=== PATIENT | male | born 1990 | race Caucasian/White ===

== ENCOUNTER 2025-01-16 02:05 | Emergency (ER) | payer SELFPAY ==
[2025-01-16] MEDS ORDERED: Ibuprofen 800 MG TAB ONE (02:37)
== END 2025-01-16 02:49 | disposition home or self-care (01) ==
LOC: ERS 02:05
DX: S90.562A Insect bite (nonvenomous), left ankle, initial encounter (principal); S90.561A Insect bite (nonvenomous), right ankle, initial encounter; L08.9 Local infection of the skin and subcutaneous tissue, unspecified; F17.210 Nicotine dependence, cigarettes, uncomplicated; W57.XXXA Bitten or stung by nonvenomous insect and other nonvenomous arthropods, initial encounter
CPT/HCPCS: 99283